=== PATIENT | male | born 2005 | race Caucasian/White ===

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

== ENCOUNTER 2023-02-14 17:29 | Emergency (ER) | payer OTHER | END 2023-02-14 19:03 | disposition home or self-care (01) | LOC: FB.ED 17:29 | DX: T83.098A Other mechanical complication of other urinary catheter, initial encounter (principal); Z79.899 Other long term (current) drug therapy | CPT/HCPCS: 99282; 99283 ==